=== PATIENT | female | born 1975 | race African-American/Black ===

== ENCOUNTER 2017-11-04 17:33 | Emergency (ER) | payer MEDICAID ==
[~2017-11-04] VITALS: Ht 160 cm; Wt 99.5 kg
[2017-11-04 17:38] VITALS: Ht 160 cm; Wt 99.5 kg
[2017-11-04] MEDS ORDERED: BUTALB-APAP-CA1 EACH PO (19:07)
[2017-11-04] MEDS ORDERED: CIPRODEX OTIC7.5 ML RIGHT EAR (19:07)
[2017-11-04] MEDS ORDERED: AMOXICILLIN875 MG PO (19:08)
[2017-11-04 19:40] VITALS: BP 111/71
[2017-12-08 15:04] VITALS: Ht 160 cm; Wt 99.5 kg
== END 2017-11-04 20:02 | disposition home or self-care (01) ==
LOC: D.ER 17:33
DX: R51 Headache (principal); Z86.73 Personal history of transient ischemic attack (TIA), and cerebral infarction without residual deficits; F17.200 Nicotine dependence, unspecified, uncomplicated

== ENCOUNTER 2017-12-04 17:50 | Inpatient (IN) | payer MEDICAID ==
[~2017-12-04] VITALS: Ht 160 cm; Wt 98.2 kg
[~2017-12-04 17:50] MED LIST: AMOXICILLIN875 MG PO; BUTALB-APAP-CA1 EACH PO; CIPRODEX OTIC7.5 ML RIGHT EAR
[2017-12-04 21:00] VITALS: BP 108/73
[2017-12-04 21:19] LABS: BASOPHILS 0 % (0-2); EOSINOPHILS 0.5 % (0-7); HEMATOCRIT 35.4 % (36.0-48.0); HEMOGLOBIN 11.6 g/dL (12-16); IMMATURE GRANULOCYTES 0.2 % (0-5); LYMPHOCYTES 6.8 % (15-50); MCH 30.7 pg (26.0-34.0); MCHC 32.8 g/dL (31.0-37.0); MCV 93.7 fL (80.0-100.0); MEAN PLATELET VOLUME 10.4 fL (7.4-10.4); MONOCYTES 4.1 % (2-11); NEUTROPHILS 88.4 % (40-80); PLATELET COUNT 237 10x3/uL (130-400); RBC 3.78 10x6/uL (4.00-5.40); RDW 13.9 % (11.5-14.5); WBC 11.1 10x3/uL (4.8-10.8)
[2017-12-04 21:28] LABS: APTT 27.9 SECONDS (22.8-39.4); INR 1.12 (0.85-1.17)
[2017-12-04 21:29] LABS: D-DIMER-QUANTITATIVE 0.68 ug/mLFEU (0.20-0.54)
[2017-12-04 21:31] LABS: ALBUMIN 3.6 g/dL (3.4-5.0); ALKALINE PHOSPHATASE 70 U/L (46-116); ALT (SGPT) 12 U/L (10-68); BILIRUBIN - TOTAL 0.59 mg/dL (0.2-1.3); CALC OSMOLALITY 283 mosm/kg (275-300); CALCIUM 8.6 mg/dL (8.5-10.1); CARBON DIOXIDE 28.9 mmol/L (21.0-32.0); CHLORIDE - SERUM 105 mmol/L (98-107); CREATININE - SERUM 1.1 mg/dL (0.6-1.3); GLUCOSE 180 mg/dL (74-106); POTASSIUM - SERUM 3.4 mmol/L (3.5-5.1); PROTEIN - SERUM 7.8 g/dL (6.4-8.2); SODIUM 141 mmol/L (136-145); UREA NITROGEN 8 mg/dL (7-18); eGFR NON AFRICAN AMERICAN 57 mL/min (90-120)
[2017-12-04 21:43] LABS: CKMB 0.8 U/L (0.0-3.6); CREATINE KINASE 92 UL (21-215); PRO BNP 131 pg/mL (0-125)
[2017-12-04 21:45] LABS: TROPONIN-I < 0.017 ng/mL (0.000-0.060)
[2017-12-04 22:00] VITALS: BP 104/64
[2017-12-04 22:18] LABS: APPEARANCE HAZY (CLEAR); BILIRUBIN 1+ (NEGATIVE); COLOR AMBER (YELLOW); GLUCOSE NEGATIVE (NEGATIVE); KETONE NEGATIVE (NEGATIVE); NITRITE NEGATIVE (NEGATIVE); PROTEIN NEGATIVE (NEGATIVE)
[2017-12-04 22:19] LABS: RED CELLS - URINE 0-5 /hpf (0-5); WHITE CELLS - URINE 0-5 /hpf (0-5)
[2017-12-04 22:20] LABS: BACTERIA MANY /hpf (NONE SEEN)
[2017-12-04 23:00] VITALS: BP 104/67
[2017-12-04 23:44] LABS: TROPONIN-I 0.022 ng/mL (0.000-0.060)
[2017-12-05] VITALS (29 sets, daily range): BP systolic 103–125; BP diastolic 62–75; BMI 37.7; BMI 37.5
[2017-12-05 04:22] LABS: BASOPHILS 0.2 % (0-2); EOSINOPHILS 1.2 % (0-7); HEMATOCRIT 35.9 % (36.0-48.0); HEMOGLOBIN 11.4 g/dL (12-16); IMMATURE GRANULOCYTES 0.2 % (0-5); LYMPHOCYTES 17.6 % (15-50); MCH 29.8 pg (26.0-34.0); MCHC 31.8 g/dL (31.0-37.0); MCV 93.7 fL (80.0-100.0); MEAN PLATELET VOLUME 10.6 fL (7.4-10.4); MONOCYTES 7.8 % (2-11); PLATELET COUNT 243 10x3/uL (130-400); RBC 3.83 10x6/uL (4.00-5.40); WBC 12.3 10x3/uL (4.8-10.8)
[2017-12-05 04:52] LABS: ALBUMIN 3.4 g/dL (3.4-5.0); ALKALINE PHOSPHATASE 66 U/L (46-116); ALT (SGPT) 11 U/L (10-68); BILIRUBIN - TOTAL 0.66 mg/dL (0.2-1.3); CALCIUM 8.8 mg/dL (8.5-10.1); CARBON DIOXIDE 28.8 mmol/L (21.0-32.0); CHLORIDE - SERUM 106 mmol/L (98-107); CREATINE KINASE 117 UL (21-215); POTASSIUM - SERUM 3.8 mmol/L (3.5-5.1); PROTEIN - SERUM 7.3 g/dL (6.4-8.2); SODIUM 141 mmol/L (136-145); TROPONIN-I < 0.017 ng/mL (0.000-0.060); UREA NITROGEN 8 mg/dL (7-18); eGFR NON AFRICAN AMERICAN 83 mL/min (90-120)
[2017-12-05 04:53] LABS: CALC OSMOLALITY 277 mosm/kg (275-300); CREATININE - SERUM 0.8 mg/dL (0.6-1.3); GLUCOSE 87 mg/dL (74-106)
[2017-12-05 12:00] LABS: CKMB 1.8 U/L (0.0-3.6); CREATINE KINASE 136 UL (21-215)
[2017-12-05 12:01] LABS: TROPONIN-I < 0.017 ng/mL (0.000-0.060)
[2017-12-05 23:03] LABS: UDS - AMPHET NEGATIVE QUAL (NEGATIVE); UDS - BARB NEGATIVE QUAL (NEGATIVE); UDS - BENZO NEGATIVE QUAL (NEGATIVE); UDS - COCAINE NEGATIVE QUAL (NEGATIVE); UDS - OPIATE NEGATIVE QUAL (NEGATIVE); UDS - PCP NEGATIVE QUAL (NEGATIVE); UDS - THC NEGATIVE QUAL (NEGATIVE)
[2017-12-06] VITALS (19 sets, daily range): BP systolic 94–129; BP diastolic 61–99
[2017-12-06 04:16] LABS: BASOPHILS 0.2 % (0-2); EOSINOPHILS 1.6 % (0-7); IMMATURE GRANULOCYTES 0.2 % (0-5); MCH 30.1 pg (26.0-34.0); MCHC 32.4 g/dL (31.0-37.0); MCV 93.2 fL (80.0-100.0); MEAN PLATELET VOLUME 11.1 fL (7.4-10.4); MONOCYTES 7.4 % (2-11); NEUTROPHILS 61.6 % (40-80); PLATELET COUNT 224 10x3/uL (130-400); RBC 3.65 10x6/uL (4.00-5.40); RDW 14.3 % (11.5-14.5)
[2017-12-06 04:20] LABS: WBC 6.5 10x3/uL (4.8-10.8)
[2017-12-06 04:39] LABS: ALBUMIN 3.1 g/dL (3.4-5.0); ANION GAP 9.9 mmol/L (8-16); BILIRUBIN - DIRECT 0.43 mg/dL (0.00-0.30); BILIRUBIN - INDIRECT 0.35 mg/dL (0.00-1.00); BILIRUBIN - TOTAL 0.78 mg/dL (0.2-1.3); CALCIUM 8.5 mg/dL (8.5-10.1); CARBON DIOXIDE 28.3 mmol/L (21.0-32.0); CREATININE - SERUM 0.9 mg/dL (0.6-1.3); MAGNESIUM - SERUM 2.2 mg/dL (1.8-2.4); PHOSPHOROUS 3.9 mg/dL (2.5-4.9); POTASSIUM - SERUM 3.2 mmol/L (3.5-5.1); PROTEIN - SERUM 7.2 g/dL (6.4-8.2)
[2017-12-07] VITALS (17 sets, daily range): BP systolic 93–130; BP diastolic 45–90
[2017-12-07 03:36] LABS: BASOPHILS 0.2 % (0-2); EOSINOPHILS 1.7 % (0-7); HEMATOCRIT 32.9 % (36.0-48.0); HEMOGLOBIN 10.8 g/dL (12-16); IMMATURE GRANULOCYTES 0.2 % (0-5); LYMPHOCYTES 28.9 % (15-50); MCH 30.2 pg (26.0-34.0); MCHC 32.8 g/dL (31.0-37.0); MCV 91.9 fL (80.0-100.0); MEAN PLATELET VOLUME 10.9 fL (7.4-10.4); MONOCYTES 10.2 % (2-11); NEUTROPHILS 58.8 % (40-80); PLATELET COUNT 235 10x3/uL (130-400); RBC 3.58 10x6/uL (4.00-5.40); WBC 5.4 10x3/uL (4.8-10.8)
[2017-12-07 03:58] LABS: CALC OSMOLALITY 280 mosm/kg (275-300); CALCIUM 8.8 mg/dL (8.5-10.1); CARBON DIOXIDE 27.1 mmol/L (21.0-32.0); CHLORIDE - SERUM 107 mmol/L (98-107); CREATININE - SERUM 0.7 mg/dL (0.6-1.3); GLUCOSE 96 mg/dL (74-106); POTASSIUM - SERUM 3.4 mmol/L (3.5-5.1); SODIUM 142 mmol/L (136-145); UREA NITROGEN 7 mg/dL (7-18); eGFR NON AFRICAN AMERICAN > 90 mL/min (90-120)
[2017-12-07 12:08] LABS: AFB SPECIMEN PROCESSING Concentration (())
[2017-12-08] VITALS (25 sets, daily range): BP systolic 87–127; BP diastolic 42–80; Ht 160 cm; Wt 98.2 kg
[2017-12-08 04:57] LABS: BASOPHILS 0.1 % (0-2); EOSINOPHILS 1.2 % (0-7); HEMOGLOBIN 11.3 g/dL (12-16); IMMATURE GRANULOCYTES 0.1 % (0-5); LYMPHOCYTES 19.7 % (15-50); MCH 29.7 pg (26.0-34.0); MCHC 32.3 g/dL (31.0-37.0); MCV 92.1 fL (80.0-100.0); MEAN PLATELET VOLUME 11.8 fL (7.4-10.4); MONOCYTES 8.2 % (2-11); NEUTROPHILS 70.7 % (40-80)
[2017-12-08 04:58] LABS: PLATELET COUNT 283 10x3/uL (130-400); WBC 7.4 10x3/uL (4.8-10.8)
[2017-12-08 05:16] LABS: CALC OSMOLALITY 287 mosm/kg (275-300); CALCIUM 8.9 mg/dL (8.5-10.1); CARBON DIOXIDE 30.4 mmol/L (21.0-32.0); CHLORIDE - SERUM 108 mmol/L (98-107); CREATININE - SERUM 0.8 mg/dL (0.6-1.3); GLUCOSE 85 mg/dL (74-106); PHENYTOIN (DILANTIN) 7.7 ug/mL (10.0-20.0); POTASSIUM - SERUM 3.4 mmol/L (3.5-5.1); SODIUM 147 mmol/L (136-145); eGFR NON AFRICAN AMERICAN 83 mL/min (90-120)
[2017-12-08 05:18] LABS: UREA NITROGEN 5 mg/dL (7-18)
[2017-12-08 11:30] LABS: VANCOMYCIN - TROUGH 16.2 ug/mL (10.0-20.0)
[2017-12-09] VITALS (17 sets, daily range): BP systolic 98–130; BP diastolic 51–90
[2017-12-09 04:34] LABS: BASOPHILS 0.2 % (0-2); EOSINOPHILS 2.7 % (0-7); HEMATOCRIT 33.8 % (36.0-48.0); HEMOGLOBIN 10.9 g/dL (12-16); IMMATURE GRANULOCYTES 0.4 % (0-5); LYMPHOCYTES 32.1 % (15-50); MCH 29.9 pg (26.0-34.0); MCHC 32.2 g/dL (31.0-37.0); MCV 92.9 fL (80.0-100.0); MEAN PLATELET VOLUME 10.9 fL (7.4-10.4); MONOCYTES 12.7 % (2-11); NEUTROPHILS 51.9 % (40-80); PLATELET COUNT 284 10x3/uL (130-400); RBC 3.64 10x6/uL (4.00-5.40); RDW 14.1 % (11.5-14.5)
[2017-12-09 04:36] LABS: WBC 4.8 10x3/uL (4.8-10.8)
[2017-12-09 04:45] LABS: CALC OSMOLALITY 289 mosm/kg (275-300); CALCIUM 8.8 mg/dL (8.5-10.1); CARBON DIOXIDE 29.5 mmol/L (21.0-32.0); CHLORIDE - SERUM 109 mmol/L (98-107); CREATININE - SERUM 0.7 mg/dL (0.6-1.3); GLUCOSE 86 mg/dL (74-106); POTASSIUM - SERUM 3.5 mmol/L (3.5-5.1); SODIUM 148 mmol/L (136-145); UREA NITROGEN 5 mg/dL (7-18); eGFR NON AFRICAN AMERICAN > 90 mL/min (90-120)
[2017-12-10 01:57] VITALS: BP 114/62
[2017-12-10 05:30] VITALS: BP 113/48
[2017-12-10 05:45] LABS: BASOPHILS 0.8 % (0-2); EOSINOPHILS 1.1 % (0-7); HEMATOCRIT 33.8 % (36.0-48.0); IMMATURE GRANULOCYTES 0.8 % (0-5); LYMPHOCYTES 33.1 % (15-50); MCH 29.7 pg (26.0-34.0); MCHC 32.5 g/dL (31.0-37.0); MCV 91.4 fL (80.0-100.0); MEAN PLATELET VOLUME 11.1 fL (7.4-10.4); MONOCYTES 13.8 % (2-11); NEUTROPHILS 50.4 % (40-80); PLATELET COUNT 312 10x3/uL (130-400); RDW 13.7 % (11.5-14.5); WBC 3.6 10x3/uL (4.8-10.8)
[2017-12-10 06:00] LABS: CALC OSMOLALITY 288 mosm/kg (275-300); CALCIUM 8.7 mg/dL (8.5-10.1); CARBON DIOXIDE 28.2 mmol/L (21.0-32.0); CHLORIDE - SERUM 109 mmol/L (98-107); CREATININE - SERUM 0.8 mg/dL (0.6-1.3); GLUCOSE 86 mg/dL (74-106); PHENYTOIN (DILANTIN) 8.7 ug/mL (10.0-20.0); SODIUM 147 mmol/L (136-145); UREA NITROGEN 6 mg/dL (7-18); eGFR NON AFRICAN AMERICAN 83 mL/min (90-120)
[2017-12-10 06:07] LABS: POTASSIUM - SERUM 2.7 mmol/L (3.5-5.1)
[2017-12-10 07:54] VITALS: BP 113/62
[2017-12-10 10:19] LABS: FUNGUS STAIN Final report (())
[2017-12-10 11:29] VITALS: BP 137/68
[2017-12-10 15:34] VITALS: BP 103/61
[2017-12-10 19:44] VITALS: BP 115/67
[2017-12-11 01:25] VITALS: BP 94/56
[2017-12-11 05:58] VITALS: BP 101/59
[2017-12-11 06:33] LABS: CALC OSMOLALITY 288 mosm/kg (275-300); CALCIUM 8.5 mg/dL (8.5-10.1); CARBON DIOXIDE 27.6 mmol/L (21.0-32.0); CHLORIDE - SERUM 111 mmol/L (98-107); CREATININE - SERUM 0.7 mg/dL (0.6-1.3); GLUCOSE 83 mg/dL (74-106); SODIUM 147 mmol/L (136-145); UREA NITROGEN 6 mg/dL (7-18); eGFR NON AFRICAN AMERICAN > 90 mL/min (90-120)
[2017-12-11 06:34] LABS: HEMOGLOBIN 10.8 g/dL (12-16); MCH 30.1 pg (26.0-34.0); MCHC 32.7 g/dL (31.0-37.0); MCV 91.9 fL (80.0-100.0); PLATELET COUNT 300 10x3/uL (130-400); POTASSIUM - SERUM 3.3 mmol/L (3.5-5.1); RBC 3.59 10x6/uL (4.00-5.40); RDW 14.1 % (11.5-14.5)
[2017-12-11 06:36] LABS: WBC 2.6 10x3/uL (4.8-10.8)
[2017-12-11 07:43] LABS: ANISOCYTOSIS OCC; EOSINOPHILS 1 % (0-7); HYPOCHROMASIA OCC; LYMPHOCYTES 26 % (15-50); MONOCYTES 10 % (2-11); NEUTROPHILS 59 % (40-80)
[2017-12-11 07:44] LABS: PLATELET ESTIMATE NORMAL
[2017-12-11 09:31] VITALS: BP 126/66
[2017-12-11 13:41] VITALS: BP 124/59
[2017-12-11] MEDS ORDERED: ELIQUIS5 MG PO (14:08)
[2018-01-05 08:08] LABS: FUNGUS MYCOLOGY CULTURE Final report (())
[2018-01-29 15:25] LABS: ACID FAST CULTURE Negative (()); ACID FAST SMEAR Negative (())
== END 2017-12-11 15:15 | disposition home or self-care (01) | DRG 871 ==
LOC: D.ER 17:50 → D.M2 22:52 → D.EDHOLD 22:52 → D.ICU 22:52 → D.M2 12-09 22:50
PROVIDERS: Family Medicine; Internal Medicine Nephrology; Internal Medicine Pulmonary Disease
PROC: 0BH17EZ Insertion of Endotracheal Airway into Trachea, Via Natural or Artificial Opening (ICD-10-PCS; principal; 2017-12-05)
PROC: 5A1945Z Respiratory Ventilation, 24-96 Consecutive Hours (ICD-10-PCS; 2017-12-05)
PROC: 0B978ZZ Drainage of Left Main Bronchus, Via Natural or Artificial Opening Endoscopic (ICD-10-PCS; 2017-12-05)
PROC: 0B938ZZ Drainage of Right Main Bronchus, Via Natural or Artificial Opening Endoscopic (ICD-10-PCS; 2017-12-05)
DX: A41.9 Sepsis, unspecified organism (principal); J96.01 Acute respiratory failure with hypoxia; J69.0 Pneumonitis due to inhalation of food and vomit; G93.5 Compression of brain; F17.203 Nicotine dependence unspecified, with withdrawal; L03.115 Cellulitis of right lower limb; J90 Pleural effusion, not elsewhere classified; I82.402 Acute embolism and thrombosis of unspecified deep veins of left lower extremity; J44.1 Chronic obstructive pulmonary disease with (acute) exacerbation; E87.2 Acidosis; D64.9 Anemia, unspecified; G40.909 Epilepsy, unspecified, not intractable, without status epilepticus; E66.01 Morbid (severe) obesity due to excess calories; Z68.37 Body mass index [BMI] 37.0-37.9, adult; R41.82 Altered mental status, unspecified; E87.6 Hypokalemia

== ENCOUNTER 2019-12-15 16:46 | Emergency (ER) | payer MEDICAID ==
[~2019-12-15] VITALS: Ht 160 cm; Wt 122.7 kg
[~2019-12-15 16:46] MED LIST changes: +ELIQUIS5 MG PO
[2019-12-15 17:00] VITALS: Ht 160 cm; Wt 122.7 kg
[2019-12-15] MEDS ORDERED: KEPPRA750 MG PO (17:02)
[2019-12-15 18:30] LABS: HEMOGLOBIN 10.9 g/dL (12-16); LYMPHOCYTES 50.2 % (15-50); MCH 29.8 pg (26.0-34.0); MCHC 31.1 g/dL (31.0-37.0); MCV 95.6 fL (80.0-100.0); MEAN PLATELET VOLUME 10.4 fL (7.4-10.4); PLATELET COUNT 245 10x3/uL (130-400); RBC 3.66 10x6/uL (4.00-5.40); RDW 14.4 % (11.5-14.5); WBC 4.5 10x3/uL (4.8-10.8)
[2019-12-15 18:32] LABS: INR 1.06 (0.85-1.17); PROTIME 13.7 SECONDS (11.6-15.0)
[2019-12-15 18:33] LABS: APTT 38.6 SECONDS (22.8-39.4)
[2019-12-15 18:47] LABS: CALCIUM 8.1 mg/dL (8.5-10.1); CARBON DIOXIDE 33.6 mmol/L (21.0-32.0); CREATININE - SERUM 1.1 mg/dL (0.6-1.3); POTASSIUM - SERUM 3.6 mmol/L (3.5-5.1)
[2019-12-15 18:58] LABS: ALBUMIN 3.8 g/dL (3.4-5.0); BILIRUBIN - TOTAL 0.26 mg/dL (0.2-1.3); PROTEIN - SERUM 7.5 g/dL (6.4-8.2)
[2019-12-15 19:07] LABS: BACTERIA MODERATE /hpf (NEGATIVE); BILIRUBIN NEGATIVE (NEGATIVE); EPITHELIAL CELLS 0-5 /hpf (0-5); GLUCOSE NEGATIVE (NEGATIVE); KETONE NEGATIVE (NEGATIVE); NITRITE NEGATIVE (NEGATIVE); RED CELLS - URINE 0-5 /hpf (0-5); SPECIFIC GRAVITY 1.025 (1.005-1.020); UROBILINOGEN NORMAL (NORMAL); WHITE CELLS - URINE 0-5 /hpf (NEGATIVE)
[2019-12-15] MEDS ORDERED: FUROSEMIDE20 MG PO (19:54)
[2019-12-15 21:29] VITALS: BP 118/60
== END 2019-12-15 20:20 | disposition home or self-care (01) ==
LOC: D.ER 16:46
PROVIDERS: Emergency Medicine
DX: R60.9 Edema, unspecified (principal)

== ENCOUNTER 2020-10-11 12:39 | Emergency (ER) | payer MEDICAID ==
[~2020-10-11] VITALS: Ht 160 cm; Wt 122.7 kg
[~2020-10-11 12:39] MED LIST changes: +FUROSEMIDE20 MG PO; +KEPPRA750 MG PO
[2020-10-11 12:56] VITALS: Ht 160 cm; Wt 122.7 kg
[2020-10-11 14:01] LABS: BASOPHILS 0.2 % (0-2); EOSINOPHILS 5.2 % (0-7); HEMATOCRIT 38.9 % (36.0-48.0); IMMATURE GRANULOCYTES 0.2 % (0-5); LYMPHOCYTE ABS# 1.98 10x3/uL (1.18-3.74); LYMPHOCYTES 46.5 % (15-50); MCH 27.7 pg (26.0-34.0); MCHC 30.8 g/dL (31.0-37.0); MCV 89.8 fL (80.0-100.0); MEAN PLATELET VOLUME 11.2 fL (7.4-10.4); MONOCYTES 9.2 % (2-11); NEUTROPHIL ABS# 1.65 10x3/uL (1.56-6.13); NEUTROPHILS 38.7 % (40-80); RBC 4.33 10x6/uL (4.00-5.40); RDW 15.6 % (11.5-14.5); WBC 4.3 10x3/uL (4.8-10.8)
[2020-10-11 14:04] LABS: PLATELET COUNT 300 10x3/uL (130-400)
[2020-10-11 14:08] LABS: CALC OSMOLALITY 283 mosm/kg (275-300); CALCIUM 8.5 mg/dL (8.5-10.1); CARBON DIOXIDE 33.7 mmol/L (21.0-32.0); CHLORIDE - SERUM 106 mmol/L (98-107); GLUCOSE 83 mg/dL (74-106); POTASSIUM - SERUM 3.9 mmol/L (3.5-5.1); SODIUM 143 mmol/L (136-145); UREA NITROGEN 12 mg/dL (7-18); eGFR NON AFRICAN AMERICAN 63 mL/min (90-120)
[2020-10-11 14:11] LABS: INR 1.09 (0.85-1.17); PROTIME 13.1 SECONDS (11.6-15.0)
[2020-10-11 14:12] LABS: APTT 36.9 SECONDS (22.8-39.4)
[2020-10-11 14:26] LABS: ALBUMIN 3.6 g/dL (3.4-5.0); ALKALINE PHOSPHATASE 83 U/L (30-120); ALT (SGPT) 30 U/L (10-68); BILIRUBIN - TOTAL 0.39 mg/dL (0.2-1.3); CREATINE KINASE 86 UL (21-215); MAGNESIUM - SERUM 2.2 mg/dL (1.8-2.4); PROTEIN - SERUM 7.9 g/dL (6.4-8.2); TROPONIN-I < 0.017 ng/mL (0.000-0.060)
[2020-10-11] MEDS ORDERED: ACETAMINOPHEN500 M1 PO (17:48)
[2020-10-11] MEDS ORDERED: IBUPROFEN800 MG PO (17:48)
[2020-10-11] MEDS ORDERED: CYCLOBENZAPRINE10 MG PO (17:48)
[2020-10-11 18:06] VITALS: BP 121/69
== END 2020-10-11 18:06 | disposition home or self-care (01) ==
LOC: D.ER 12:39
PROVIDERS: Family Medicine
DX: M79.601 Pain in right arm (principal); M79.10 Myalgia, unspecified site

== ENCOUNTER 2020-10-29 13:50 | Emergency (ER) | payer MEDICAID ==
[~2020-10-29] VITALS: Ht 160 cm; Wt 103.2 kg
[~2020-10-29 13:50] MED LIST changes: +ACETAMINOPHEN500 M1 PO; +CYCLOBENZAPRINE10 MG PO; +IBUPROFEN800 MG PO
[2020-10-29] MEDS ORDERED: GABAPENTIN300 MG PO (13:56)
[2020-10-29 14:20] VITALS: Ht 160 cm; Wt 103.2 kg
[2020-10-29 15:05] VITALS: BP 99/61
[2020-10-29 15:12] LABS: BASOPHILS 0.4 % (0-2); EOSINOPHILS 0.9 % (0-7); HEMATOCRIT 36.6 % (36.0-48.0); HEMOGLOBIN 11.7 g/dL (12-16); LYMPHOCYTES 20.6 % (15-50); MCV 87.6 fL (80.0-100.0); MEAN PLATELET VOLUME 8.7 fL (7.4-10.4); MONOCYTES 7.7 % (2-11); NEUTROPHILS 70.4 % (40-80); PLATELET COUNT 246 10x3/uL (130-400); RBC 4.18 10x6/uL (4.00-5.40); RDW 16.8 % (11.5-14.5); WBC 5.9 10x3/uL (4.8-10.8)
[2020-10-29 15:26] LABS: CALC OSMOLALITY 285 mosm/kg (275-300); CALCIUM 8.1 mg/dL (8.5-10.1); CARBON DIOXIDE 34.1 mmol/L (21.0-32.0); CHLORIDE - SERUM 105 mmol/L (98-107); GLUCOSE 94 mg/dL (74-106); POTASSIUM - SERUM 4.2 mmol/L (3.5-5.1); SODIUM 144 mmol/L (136-145); UREA NITROGEN 9 mg/dL (7-18); eGFR NON AFRICAN AMERICAN 63 mL/min (90-120)
[2020-10-29 15:38] LABS: APTT 37.9 SECONDS (22.8-39.4); INR 1.23 (0.85-1.17); PROTIME 14.3 SECONDS (11.6-15.0)
[2020-10-29 15:43] LABS: ALBUMIN 3.3 g/dL (3.4-5.0); ALKALINE PHOSPHATASE 70 U/L (30-120); ALT (SGPT) 27 U/L (10-68); BILIRUBIN - TOTAL 0.39 mg/dL (0.2-1.3); CKMB 0.8 U/L (0.0-3.6); CREATINE KINASE 95 UL (21-215); PROTEIN - SERUM 7.2 g/dL (6.4-8.2)
[2020-10-29 15:47] LABS: TROPONIN-I < 0.017 ng/mL (0.000-0.060)
[2020-10-29 16:10] LABS: THYROID STIMULATING HORMONE 0.66 uIU/mL (0.36-3.74)
[2020-10-29 16:25] LABS: UDS - AMPHET NEGATIVE QUAL (NEGATIVE); UDS - BARB NEGATIVE QUAL (NEGATIVE); UDS - BENZO NEGATIVE QUAL (NEGATIVE); UDS - COCAINE NEGATIVE QUAL (NEGATIVE); UDS - OPIATE NEGATIVE QUAL (NEGATIVE); UDS - PCP NEGATIVE QUAL (NEGATIVE); UDS - THC NEGATIVE QUAL (NEGATIVE)
[2020-10-29 16:27] LABS: BILIRUBIN NEGATIVE (NEGATIVE); KETONE NEGATIVE (NEGATIVE); NITRITE NEGATIVE (NEGATIVE); UROBILINOGEN NORMAL mg/dL (< 2)
[2020-10-29] MEDS ORDERED: ACETAMINOPHEN500 M1 PO (16:51)
== END 2020-10-29 17:00 | disposition home or self-care (01) ==
LOC: D.ER 13:50
PROVIDERS: Family Medicine
DX: R51.9 Headache, unspecified (principal); R40.0 Somnolence; J45.909 Unspecified asthma, uncomplicated; Z72.0 Tobacco use